=== PATIENT | male | born 2000 | race African-American/Black ===

== ENCOUNTER 2021-01-15 21:07 | Emergency (ER) | payer OTHER ==
[~2021-01-15] VITALS: Ht 180.3 cm; Wt 73.0 kg
[2021-01-15] MEDS ORDERED: MUCI1TAB18 PO (21:20)
[2021-01-15] MEDS ORDERED: IBUP80TA PO (21:20)
[2021-01-15] MEDS ORDERED: ACETAMINOPHEN 325 MG TAB PO ONE (23:50)
[2021-01-16 00:22] LABS: GC DNA AMPLIFICATION NEGATIVE (NEGATIVE)
[2021-01-16 01:05] LABS: RSV AMPLIFICATION NEGATIVE (NEGATIVE)
[2021-01-16 01:52] VITALS: BP 127/68
[2021-01-16] MEDS ORDERED: DOXYCYCLINE HYCLATE 100MG TABLET PO ONE (02:15)
[2021-01-16] MEDS ORDERED: DOXY-443 PO (02:19)
== END 2021-01-16 02:31 | disposition home or self-care (01) ==
LOC: M ED 21:07
DX: A74.9 Chlamydial infection, unspecified (principal)

== ENCOUNTER 2021-10-07 15:11 | Emergency (ER) | payer OTHER ==
[~2021-10-07] VITALS: Ht 180.3 cm; Wt 75.6 kg
[~2021-10-07 15:11] MED LIST: DOXY-443 PO; IBUP80TA PO; MUCI1TAB18 PO
[2021-10-07 19:41] VITALS: BP 137/87
[2021-10-07] MEDS ORDERED: IPRATROPIUM 0.5MG/ALBUTEROL 2.5MG INH SOL UD 3ML (DUONEB) NEB ONE (21:15)
[2021-10-07 21:38] LABS: BASO # 0.1 10^3/uL (0.0-0.2); BASO % 0.9 % (0.0-1.0); EOS # 0.8 10^3/uL (0.0-0.5); EOS % 14.2 % (0.0-3.0); HEMATOCRIT 44.4 % (42.0-52.0); HEMOGLOBIN 14.5 g/dl (13.5-17.5); LYMPH # 1.7 10^3/uL (1.5-5.0); LYMPH % 31.1 % (24.0-44.0); MEAN CORPUSCULAR HEMOGLOBIN 29.8 pg (27.0-33.0); MEAN CORPUSCULAR HGB CONC 32.7 g/dl (32.0-36.5); MEAN CORPUSCULAR VOLUME 91.4 fl (80.0-96.0); MONO # 0.6 10^3/uL (0.0-0.8); MONO % 10.9 % (2.0-8.0); NEUTROPHILS # 2.3 10^3/uL (1.5-8.5); NEUTROPHILS % 42.5 % (36.0-66.0); PLATELET COUNT, AUTOMATED 251 10^3/uL (150-450); RED BLOOD COUNT 4.86 10^6/uL (4.30-6.10); WHITE BLOOD COUNT 5.5 10^3/uL (4.0-10.0)
[2021-10-07 22:15] LABS: ALBUMIN 3.8 GM/DL (3.2-5.2); BILIRUBIN,DIRECT 0.3 MG/DL (0.0-0.2); TOTAL PROTEIN 7.4 GM/DL (6.4-8.2)
[2021-10-07] MEDS ORDERED: PROAAER10 INH (23:05)
[2021-10-07] MEDS ORDERED: MEDR4PAK PO (23:11)
== END 2021-10-07 23:46 | disposition home or self-care (01) ==
LOC: M ED 15:11
DX: J45.909 Unspecified asthma, uncomplicated (principal); Z11.52 Encounter for screening for COVID-19; Z79.51 Long term (current) use of inhaled steroids

== ENCOUNTER 2021-10-16 01:06 | Emergency (ER) | payer OTHER ==
[~2021-10-16] VITALS: Ht 180.3 cm; Wt 77.3 kg
[~2021-10-16 01:06] MED LIST changes: +MEDR4PAK PO; +PROAAER10 INH
[2021-10-16] MEDS ORDERED: predniSONE 20 MG TAB PO ONE (01:45)
[2021-10-16] MEDS: COMBIVENT RESPIMAT 100-20MCG INHALER 4GM INH SCH ×3 (02:00→02:15)
[2021-10-16] MEDS ORDERED: ALBUTEROL 90 MCG/ACT 8GM HFA INHALER INH ONE (02:45)
[2021-10-16] MEDS ORDERED: VENTAER INH (03:13)
[2021-10-16] MEDS ORDERED: PRED20TA PO (03:13)
[2021-10-16 03:15] VITALS: BP 128/78
== END 2021-10-16 03:26 | disposition home or self-care (01) ==
LOC: M ED 01:06
DX: J45.901 Unspecified asthma with (acute) exacerbation (principal); Z79.51 Long term (current) use of inhaled steroids; Z79.899 Other long term (current) drug therapy
CPT/HCPCS: 94640; 99284; J7512